=== PATIENT | male | born 1995 | race Caucasian/White ===

== ENCOUNTER 2017-08-31 02:11 | Emergency (ER) | payer OTHER ==
[~2017-08-31] VITALS: Ht 165.1 cm; Wt 62.5 kg
[2017-08-31 02:17] VITALS: Ht 165.1 cm; Wt 62.5 kg
[2017-08-31 02:45] VITALS: BP 145/97; PULSE 103; TEMP 36.6; O2SAT 99
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
== END 2017-08-31 02:46 | disposition home or self-care (01) ==
LOC: C.EDA 02:13
DX: F10.99 Alcohol use, unspecified with unspecified alcohol-induced disorder (principal); V18.0XXA Pedal cycle driver injured in noncollision transport accident in nontraffic accident, initial encounter